=== PATIENT | female | born 1990 | race Caucasian/White ===

== ENCOUNTER 2017-01-06 18:55 | Emergency (ER) | payer OTHER ==
[2017-01-06 19:03] VITALS: BP 120/74
--- NOTE | 2017-01-06 19:11 | ED DYSPNEA/ASTHMA COMPLAINT ---
History of Present Illness General Chief Complaint: Allergy Symptoms Stated Complaint: "I THINK IM HAVING A REAL BAD REACTION" Source: patient, old records Exam Limitations: no limitations Vital Signs & Intake/Output Vital Signs & Intake/Output Vital Signs Date Time Temp Pulse Resp B/P Pulse O2 O2 Flow FiO2 Ox Delivery Rate 01/06 1933 98 01/06 1905 98 Room Air 01/06 1903 98.4 95 18 120/74 97 Room Air Allergies Coded Allergies: No Known Allergies (01/06/17) Reconcile Medications Bupropion HCl (Wellbutrin XL) 150 MG TAB.ER.24H 1 TAB PO QAM MENTAL HEALTH ( Reported) Dextroamphetamine/Amphetamine (Adderall 30 MG Tablet) 30 MG TABLET 1 TAB PO QAM ADHD (Reported) Dextroamphetamine/Amphetamine (Adderall 10 MG Tablet) 10 MG TABLET 1 TAB PO DAILY ADHD (Reported) Levocetirizine Dihydrochloride (Xyzal) 5 MG TABLET 1 TAB PO DAILY ALLERGIES ( Reported) Levonorgestrel (Mirena) 20 MCG/24 HOUR (5 YEARS) IUD CONTROL (Reported) Montelukast Sodium (Singulair) 10 MG TABLET 1 TAB PO DAILY ALLERGIES ( Reported) Oxcarbazepine (Trileptal) (Unknown Strength) TABLET (Unknown Dose) PO BID MENTAL HEALTH (Reported) Triage Nurses Notes Reviewed? yes HPI: Last patient's throat felt itchy. All day today she felt like she was having a little bit of difficulty breathing and like her throat was closing up. Patient does have known allergies and she takes Singulair as well as loratadine. This evening her throat felt even more congested. She came into the emergency room for evaluation. Patient denies any new medications or new foods. There is no itching or rash. There is no difficulty swallowing. Patient denies any chest pain or chest tightness. Past History Travel History Traveled to [place] past 21 day No Medical History Any Pertinent Medical History? see below for history Other Medical Hx: ALLERGIC REACTIONS Surgical History Surgical History: non-contributory Psychosocial History Tobacco Use: Never used ETOH Use: occasional use Illicit Drug Use: denies illicit drug use Family History Hx Contributory? No Review of Systems Review of Systems Constitutional: Reports: no symptoms. EENTM: Reports: see HPI. Respiratory: Reports: see HPI, short of breath. Cardiovascular: Reports: no symptoms. GI: Reports: no symptoms. Genitourinary: Reports: no symptoms. Musculoskeletal: Reports: no symptoms. Skin: Reports: no symptoms. Neurological/Psychological: Reports: no symptoms. Hematologic/Endocrine: Reports: no symptoms. Immunologic/Allergic: Reports: no symptoms. All Other Systems: Reviewed and Negative Physical Exam Physical Exam General Appearance: well developed/nourished, alert, awake, anxious, moderate distress Head: atraumatic, normal appearance Eyes: Bilateral: PERRL, EOMI. Ears, Nose, Throat: normal pharynx, normal ENT inspection, hearing grossly normal, NO EDEMA Neck: normal inspection, supple, full range of motion Respiratory: chest non-tender, GOOD AIR ENTRY WITH END EXPIRATORY WHEEZE Cardiovascular: regular rate/rhythm, normal peripheral pulses Gastrointestinal: normal bowel sounds, soft, non-tender, no organomegaly Extremities: normal inspection, normal capillary refill, normal range of motion, no edema Neurologic/Psych: no motor/sensory deficits, awake, alert, oriented x 3, normal gait, normal mood/affect Skin: intact, normal color, warm/dry Lymphatic: no anterior cervical romi Core Measures ACS in differential dx? No Severe Sepsis Present: No Septic Shock Present: No Progress Differential Diagnosis: asthma, bronchitis, ALLERGIC REACTION Plan of Care: Current Medications Sig/Katie Start time Last Medication Dose Stop Time Status Admin Albuterol Sulfate 3 ML ONCE ONE 01/06 1915 UNVr (Proventil) 01/07 1916 Diphenhydramine HCl 25 MG ONCE ONE 01/06 1915 UNVr (Benadryl) 01/07 1916 Initial ED EKG: none Comments: After albuterol neb that there remains good air entry and there is no more wheezing. PT IS FEELING MUCH BETTER AFTER IV BENADRYL Departure Departure Disposition: HOME OR SELF CARE Condition: Stable Clinical Impression Primary Impression: Allergic reaction Additional Instructions: RETURN IF SYMPTOMS WORSEN OR FOR ANY COCNERNS Departure Forms: Customer Survey General Discharge Information Critical Care Note Critical Care Note Critical Care Time: non-applicable
[2017-01-06] MEDS ORDERED: SINGULAIR10 M1 PO (19:22)
[2017-01-06] MEDS ORDERED: ADDERALL 30 MG30 MG PO (19:23)
[2017-01-06] MEDS ORDERED: XYZAL5 M1 PO (19:23)
[2017-01-06] MEDS ORDERED: WELLBUTRIN XL150 M2 PO (19:23)
[2017-01-06] MEDS ORDERED: ADDERALL 10 MG10 MG PO (19:23)
[2017-01-06] MEDS ORDERED: MIRENA1 EACH (19:24)
[2017-01-06] MEDS ORDERED: TRILEPTAL300 M1 PO (19:24)
== END 2017-01-06 19:47 ==
LOC: ERH 18:55
DX: T78.40XA Allergy, unspecified, initial encounter (principal)
CPT/HCPCS: 1263; 96374; J1200